=== PATIENT | female | born 1965 | race Caucasian/White ===

== ENCOUNTER → 2017-07-19 | Outpatient (CLI) | payer OTHER ==
--- NOTE | 2017-07-19 14:06 | DIAGNOSTIC IMAGING REPORT ---
RENAL ULTRASOUND HISTORY: HEMATURIA COMPARISON: None. FINDINGS: Right kidney: 11.3 cm. No hydronephrosis. Normal corticomedullary differentiation and cortical thickness. Left kidney: 11.1 cm. No hydronephrosis. Normal corticomedullary differentiation and cortical thickness. Bladder: No bladder wall thickening. The bilateral ureteral jets were identified. IMPRESSION: Normal renal ultrasound. Electronically signed by: Cirilo Balderas M.D. 07/19/2017 2:05 PM Dictated Date/Time: 07/19/2017 2:05 PM
== END | disposition home or self-care (01) ==
LOC: C.ULTRBC 13:18
PROVIDERS: ATTEND Nurse Practitioner Family
DX: Z87.898 Personal history of other specified conditions (principal); R31.9 Hematuria, unspecified; R11.0 Nausea